=== PATIENT | male | born 1960 | race Caucasian/White ===

== ENCOUNTER 2017-06-03 05:33 | Day surgery (SDC) | payer OTHER ==
[2017-06-03] MEDS ORDERED: fentaNYL 100 MCG/2 ML SDV IV ONE (05:34)
[2017-06-03] MEDS ORDERED: Midazolam 1 MG/ML 2 ML SDV IV ONE (05:34)
[2017-06-03] MEDS ORDERED: Sodium Chloride 0.9% 10 ML Syringe FLUSH PRN (06:00)
[2017-06-03] MEDS: Dextrose 5%-0.45% NaCl 1,000 ML IV SCH (06:00)
[2017-06-03] MEDS ORDERED: fentaNYL 100 MCG/2 ML SDV ONE (06:18)
[2017-06-03] MEDS ORDERED: Midazolam 1 MG/ML 2 ML SDV ONE (06:18)
[2017-06-03] MEDS: fentaNYL 100 MCG/2 ML SDV IV ONE ×4 (06:25→06:34)
[2017-06-03] MEDS: Midazolam 1 MG/ML 2 ML SDV IV ONE ×6 (06:26→06:32)
--- NOTE | 2017-06-03 08:03 | OR ---
DATE: 06/03/2017 PROCEDURES PERFORMED: Total colonoscopy, NBI, and cold snare polypectomy. INSTRUMENT USED: CF-H180AL Olympus videocolonoscope. PREMEDICATIONS: Fentanyl 150 mcg intravenous and Versed 4 mg intravenous. Nasal O2 cannula. The procedure was done under pulse oximetry, BP recording, and court recording monitor. INDICATION: Screening colonoscopic examination is done for detection of any polypoid lesions and removal, endoscopic hemostasis therapy if needed. DESCRIPTION OF PROCEDURE: Initial rectal exam was unremarkable. Rigid anoscopy was normal. The colonoscope was passed with ease. Scattered diverticula were noted in the distal left colon along with deformity. The scope was passed with ease up to the ileocecal area, photographs were taken of the normal-appearing cecum identified by landmarks of appendiceal orifice and double-bulged ileocecal folds. There was considerable amount of liquid fecal material that had to be aspirated. No bleeding was noted from any of the visualized areas at the commencement of the examination. No stricture. No vascular ectasia. No large isolated ulcerations seen. No evidence of diffuse inflammatory bowel disease in the form of friability, contact bleeding, or ulcerations. Probing the proximal sides of folds and flexures, using adequate distention and clearing of the stool material, withdrawal of the scope was made, cecum to rectum time over 6 minutes. In the proximal sigmoid colon, a 5 mm sized benign-appearing polyp was noted, NBI views were obtained, photographs were taken, cold snare polypectomy was done, and the tissue was retrieved and sent for histopathology. Photographs were taken of the polyp as well as the polypectomy site. No bleeding was noted from any of the visualized areas at the completion of examination. IMPRESSION: 1. Diverticulosis. 2. Sigmoid colonic polyp. The patient tolerated the procedure well. [facility] /[id number]
--- NOTE | 2017-06-03 11:48 | LETTER ---
06/03/2017 Katy Aguilar MD [facility] [address] [place] [id number] RE: KATY ALONZO : [address] Aguialr: Mr. Katy Alonzo had colonoscopic examination done this morning and he tolerated the procedure well. I herewith send a copy of the endoscopy note and photographs for your review. Thank you. Sincerely, [facility] /[id number]
== END 2017-06-03 09:02 | disposition home or self-care (01) ==
LOC: DL.ENDO 05:33
PROVIDERS: ATTEND Internal Medicine Gastroenterology
DX: Z12.11 Encounter for screening for malignant neoplasm of colon (principal); K63.5 Polyp of colon; K57.30 Diverticulosis of large intestine without perforation or abscess without bleeding; F17.210 Nicotine dependence, cigarettes, uncomplicated
CPT/HCPCS: 45385; J2250; J3010; J7042